=== PATIENT | female | born 1950 | race Caucasian/White ===

== ENCOUNTER 2019-11-01 07:09 | Emergency (ER) | payer MEDICARE, BC ==
[~2019-11-01] VITALS: Ht 162.6 cm; Wt 57.0 kg
[2019-11-01 08:05] VITALS: BP 95/49
[2019-11-01 08:24] LABS: BASOPHILS % (AUTO) 0.4 % (0-1); EOSINOPHILS % (AUTO) 0.1 % (0-6); HEMATOCRIT 31.8 % (35.0-45.0); HEMOGLOBIN 10.9 g/dl (12.0-16.0); LYMPHOCYTES # (AUTO) 1.1 X10'3 (1.1-4.8); LYMPHOCYTES % (AUTO) 14.4 % (21-51); MEAN CORPUSCULAR HEMOGLOBIN 30.8 PG (27.0-31.0); MEAN CORPUSCULAR HGB CONC 34.1 g/dL (33.0-36.5); MEAN CORPUSCULAR VOLUME 90.2 FL (78-98); MEAN PLATELET VOLUME 7.3 FL (7.4-10.4); MONOCYTES # (AUTO) 0.9 X10'3 (0-0.9); MONOCYTES % (AUTO) 11.8 % (2-12); NEUTROPHILS # (AUTO) 5.9 X10'3 (1.8-7.7); NEUTROPHILS % (AUTO) 73.3 % (42-75); PLATELET COUNT 226 X10'3 (140-440); RED BLOOD COUNT 3.53 X10'6 (4.20-5.60)
[2019-11-01 08:39] LABS: ALANINE AMINOTRANSFERASE 24 U/L (12-78); ALBUMIN 3.3 G/DL (3.4-5.0); ALBUMIN/GLOBULIN RATIO 1.1 (1.1-1.5); ALKALINE PHOSPHATASE 65 IU/L (46-116); ANION GAP 8 (8-16); ASPARTATE AMINO TRANSFERASE 19 U/L (10-37); BILIRUBIN,TOTAL 0.3 MG/DL (0.1-1.0); BLOOD UREA NITROGEN 14 MG/DL (7-18); BUN/CREATININE RATIO 20.9 (6.6-38.0); CALCIUM 8.5 MG/DL (8.5-10.1); CHLORIDE 103 MMOL/L (99-107); CREATININE 0.67 MG/DL (0.40-0.90); GLUCOSE 178 MG/DL (70-104); POTASSIUM 3.9 MMOL/L (3.5-5.1); SODIUM 139 MMOL/L (135-145); TOTAL CARBON DIOXIDE 27.9 MMOL/L (24-32); TOTAL PROTEIN 6.4 G/DL (6.4-8.2); eGFR 87 ML/MIN
[2019-11-01] MEDS ORDERED: AZIT250T2 PO (08:52)
[2019-11-01] MEDS ORDERED: BENZ-16 PO (08:52)
== END 2019-11-01 09:37 | disposition home or self-care (01) ==
LOC: ER 07:09
DX: J20.9 Acute bronchitis, unspecified (principal); Z79.2 Long term (current) use of antibiotics; Z79.899 Other long term (current) drug therapy
CPT/HCPCS: 36415; 71045; 80053; 84145; 85025; 93005; 99285

== ENCOUNTER 2025-05-15 07:02 | Emergency (ER) | payer BC, MEDICARE, OTHER ==
[~2025-05-15] VITALS: Ht 162.6 cm; Wt 56.4 kg
[2025-05-15 07:22] VITALS: TEMP 97.3
[2025-05-15] MEDS: insulin regular, human 10 units/0.1 ml syringe IV ONE (07:39)
[2025-05-15] MEDS: normal saline 1000ml 1,000 ML IV ONE (07:41)
[2025-05-15 07:49] LABS: MEAN PLATELET VOLUME 8.4 FL (7.4-10.4); RED CELL DISTRIBUTION WIDTH 14.2 % (11.5-14.5)
[2025-05-15 07:50] LABS: LEUKOCYTE ESTERASE ,URINE NEGATIVE (Neg); NITRITES, URINE NEGATIVE (Neg); OCCULT BLOOD,URINE NEGATIVE (Neg)
[2025-05-15 07:52] LABS: UA COLLECTION TYPE CLN CATCH MIDSTREAM
[2025-05-15 08:01] LABS: MUCUS STRANDS NONE SEEN /LPF (Neg); SQUAMOUS EPITHELIAL CELL,UR FEW /LPF (FEW)
[2025-05-15 08:03] LABS: CREATININE 0.93 MG/DL (0.40-0.90); TOTAL CARBON DIOXIDE 19.8 MMOL/L (24-32); eCRCL 45 ML/MIN; eGFR 59 ML/MIN
--- NOTE | 2025-05-15 08:52 | Physician Documentation ---
History of Present Illness ~ Chief Complaint: Hyperglycemia Stated Complaint: DIABETIC COMPLICATION Time Seen by MD: 07:20 Primary Medical Doctor: Dr. Gonsalez Mode of Arrival: POV HPI 74 year old female arrives reporting that her blood glucose meter at home has been reading [id number] high. Denies fever, N/V/D, abdominal pain, urinary symptoms, headache. She was recently prescribed a long acting insulin and has been unable to fill it. Medication Reconciliation Allergies: Coded Allergies: No Known Allergies (Unverified , 05/15/25) Past Medical History Past Medical History: No Pertinent History Past Surgical History: noncontributory Drug Use: none Lives with: Family Lives In: Home Review of Systems All Other Systems at this time: Reviewed and Negative Physical Exam Vital Signs: RN Vital Signs have been reviewed: Yes, Temperature: 97.3, Source: Temporal, Heart Rate: 78, Respiratory Rate: 16, BP: 138/55, Pulse Oximetry: 98, Weight: 56.360 Oxygen Flow Rate: 0 Physical Exam HEENT: PERRL, moist oral mucosa, EOMI Pulmonary: No respiratory distress MSK: no deformity Skin: w/d/i, no rash Neuro: alert, nonfocal Psych: normal affect Progress Results/Orders Results/Orders Completed Orders - LUIS E ESTRADA MD Cbc/Diff (05/15/25 07:21) CMP (05/15/25 07:21) Normal Saline 1000ml (0.9% Sodium Chlori (05/15/25 07:25) Insulin Regular, Human (Humulin R 10 Uni (05/15/25 07:25) Ua W/Microscopic, Cult If Ind (05/15/25 07:42) Medications Received in ER Medications (Trade) Dose Ordered Sig/Tiana Route PRN Reason Start Time Stop Time Status Last Admin Dose Admin Sodium Chloride 1,000 ml @ 1,000 mls/hr ONCE ONCE IV 05/15/25 07:25 05/15/25 08:24 DC 05/15/25 07:41 1,000 MLS/HR (HumuLIN R 10 units per 0.1 ML syringe) 10 units ONCE ONCE IV 05/15/25 07:25 05/15/25 07:26 DC 05/15/25 07:39 10 UNITS Vital Signs 05/15/25 05/15/25 05/15/25 05/15/25 07:16 07:22 07:22 08:43 Temp 97.3 97.3 Pulse 85 88 78 Resp 18 16 16 B/P (MAP) 148/58 150/67 (94) 138/55 (82) Pulse Ox 98 96 98 O2 Flow Rate 0 Laboratory Tests Test 05/15/25 07:15 05/15/25 07:32 05/15/25 07:42 Glucometer 422 *H White Blood Count 6.4 Red Blood Count 3.83 L Hemoglobin 11.8 L Hematocrit 35.6 Mean Corpuscular Volume 92.9 Mean Corpuscular Hemoglobin 30.9 Mean Corpuscular Hemoglobin Concent 33.3 Red Cell Distribution Width 14.2 Platelet Count 272 Mean Platelet Volume 8.4 Neutrophils (%) (Auto) 53.7 Lymphocytes (%) (Auto) 34.1 Monocytes (%) (Auto) 8.8 Eosinophils (%) (Auto) 2.5 Basophils (%) (Auto) 0.9 Neutrophils # (Auto) 3.4 Lymphocytes # (Auto) 2.2 Monocytes # (Auto) 0.6 Eosinophils # (Auto) 0.2 Basophils # (Auto) 0.1 CBC Comment Sodium Level 133 L Potassium Level 4.5 Chloride Level 96 L Carbon Dioxide Level 19.8 L Anion Gap 17 H Blood Urea Nitrogen 25 H Creatinine 0.93 H Estimated GFR/1.73 m2 59 BUN/Creatinine Ratio 26.9 H Glucose Level 422 *H Calcium Level 9.2 Total Bilirubin 0.5 Aspartate Amino Transf (AST/SGOT) 17 Alanine Aminotransferase (ALT/SGPT) 19 Alkaline Phosphatase 57 Total Protein 6.9 Albumin 3.7 Globulin 3.2 Albumin/Globulin Ratio 1.2 Chemistry Comments Urine Specimen Description Cln catch midstream Urine Color Yellow Urine Clarity Clear Urine pH 5.5 Urine Specific [place] 1.010 Urine Protein Negative Urine Glucose (UA) >=1000 H Urine Ketones 40 H Urine Occult Blood Negative Urine Nitrite Negative Urine Bilirubin Negative Urine Urobilinogen 0.2 Urine Leukocyte Esterase Negative Urine RBC None seen Urine WBC 0-4 Urine Squamous Epithelial Cells Few Urine Bacteria Few Urine Mucus None seen Urine Culture Indicated Not ind Volume Urine Centrifuged 10 ml Urine Comment Medical Decision Making Findings 74 year old female with hyperglycemia. IVF and insulin, brought blood glucose below 300 on reevaluation. Counseled, reassured, discharged with return precautions. Differential Dx:Considerations: Include: Dehydration, Diabetes, Diabetic coma, DKA, Electrolyte abnormality, Pancreatitis, UTI Departure Disposition: 01 HOME / SELF CARE / HOMELESS Impression: Primary Impression: Hyperglycemia Condition: Stable Discharge Instructions: Hyperglycemia, [id number] Referrals: NO PRIMARY CARE PROVIDER (PCP) Education Educated: Patient Educated regarding: diagnosis, treatment, prognosis, need for follow up Signature Scribe Signature: . Attestation: . LUIS E ESTRADA MD May 15, 2025 08:52
[2025-05-15 08:57] VITALS: BP 132/67; PULSE 78; RESP 16; O2SAT 98
== END 2025-05-15 09:01 | disposition home or self-care (01) ==
LOC: ER 07:03
DX: R73.9 Hyperglycemia, unspecified (principal)
CPT/HCPCS: 36415; 80053; 81001; 82948; 85025; 96361; 96374; 99283; J1815; J7030